=== PATIENT | female | born 1965 | race Caucasian/White ===

== ENCOUNTER → 2023-03-28 17:12 | Outpatient (REF) | payer BC, SELFPAY | LOC: HWWDC 17:12 | PROVIDERS: ATTENDING PHYSICIAN Nurse Practitioner Family | DX: Z12.31 Encounter for screening mammogram for malignant neoplasm of breast (principal) | CPT/HCPCS: 77063; 77067 ==

== ENCOUNTER → 2024-06-07 15:22 | Outpatient (REF) | payer OTHER, SELFPAY | LOC: HWWDC 15:22 | PROVIDERS: ATTENDING PHYSICIAN Nurse Practitioner Family; REFERRING PHYSICIAN Nurse Practitioner Women's Health | DX: Z12.31 Encounter for screening mammogram for malignant neoplasm of breast (principal) | CPT/HCPCS: 77063; 77067 ==